=== PATIENT | male | born 1925 | race Caucasian/White ===

== ENCOUNTER 2016-10-07 07:20 | Outpatient (CLI) | payer MEDICARE, BC ==
--- NOTE | ~2016-10-07 | HEMODYNAMI ---
PATIENT:LAYNE DEWEY MEDICAL RECORD: [id number] : [birth year] LOCATION:D[facility] ADMISSION DATE: 10/07/16 Generatedon:10/08/20168:01 Patient name: LAYNE DEWEY Patient #: [id number] SSN: DO B: 1925 Date of study: 10/07/2016 Page: Of Hemodynamic Procedure Report Patient Data Patient Demographics Procedure consent was obtained First Name: LAYNE Gender: Male Last Name: MACO : 1925 Patient #: [id number] Age: 89 year(s) Race: Unknown Additional ID: [id number] Contact details Address: [address] [place] [address] State: [place] City: [facility] Zip code: [address] Admission Admission Data Admission Date: 10/07/2016 Admission Time: 7:20 Admit Source: Other Procedure Procedure Types Cath Procedure Diagnostic Procedure PPM/ICD Loop Recorder Implant Procedure Description Procedure Date Procedure Date: 10/07/2016 Procedure Start Time: 8:25 Procedure Staff Name Function Compa Paulino RT Monitor Pramod Guillen RN Nurse Kai Winters MD Performing Physician Aditya Livingston RT Air Cargo Agent Procedure Data Cath Procedure Estimated blood loss: 1 ml Procedure Medications Medication Administration Route Dosage Ancef (1Gm/50ml NS) I.V.P.B 1 g Versed I.V. 1 mg Hemodynamics Rest Pre Cath Intra NCS Post Cath Vital Signs Time Heart Resp SPO2 NIBP (mmHg) Rhythm Pain Sedation Rate (ipm) (%) Status Level (bpm) 8:57:32 57 19 97 154/69(121) NSR 0 (11) 10(A) , No pain 9:02:01 57 20 97 159/68(129) NSR 0 (11) 10(A) , No pain 9:07:32 66 21 97 157/69(124) NSR 0 (11) 10(A) , No pain 9:12:03 61 23 97 170/79(133) NSR 0 (11) 10(A) , No pain 9:16:33 63 18 97 155/62(118) NSR 0 (11) 10(A) , No pain 9:21:06 69 20 96 168/75(112) NSR 0 (11) 10(A) , No pain 9:25:44 65 19 92 160/68(115) NSR 0 (11) 10(A) , No pain 9:30:10 57 21 96 147/67(115) NSR 0 (11) 10(A) , No pain 9:34:39 67 17 94 160/73(131) NSR 0 (11) 10(A) , No pain 9:39:09 64 18 94 166/77(127) NSR 0 (11) 10(A) , No pain Medications Time Medication Route Dose Verified Delivered Reason Notes Effectiven ess by by 8:56:35 Ancef I.V.P.B 1 g Kai Benavidez Per (1Gm/50ml Singh Guillen RN physician NS) 9:32:46 Versed I.V. 1 mg Kai Pramod for Singh Guillen RN sedation MD Procedure Log Time Note 8:32:08 Informed consent obtained and on chart 8:32:11 Diagnostic Cath Status : Elective 8:33:17 Admit Source: Other 8:33:25 Compa Paulino RT(R) (CV) sent for patient. Start room use. 8:33:28 Time tracking: Regular hours 8:33:33 Plan of Care:Hemodynamics will remain stable., Cardiac rhythm will remain stable., Comfort level will be maintained., Respiratory function will remain adequate., Patient/ family verbilizes understanding of procedure., Procedure tolerated without complication., Recovers from procedure without complications.. 8:55:59 Vital chart was started 8:56:35 Ancef (1Gm/50ml NS) 1 g I.V.P.B was administered by Pramod Guillen RN; Per physician; 9:30:17 Warm blankets applied, and indira hugger turned on for patient comfort. 9:30:25 Full Disclosure recording started 9:30:44 H&P Date Dictated: 10/05/2016 Within 30 days and on chart., H&P Addendum completed by physician on day of procedure. (MUST COMPLETE FOR ALL OUTPATIENTS). 9:30:47 Pre-op teaching completed and patient verbalized understanding. 9:30:50 Family in waiting room. 9:30:53 Patient NPO since Midnight. 9:31:00 Is patient on blood thinner?Yes 9:31:13 Snore? Yes 9:31:14 Sleep apnea? No 9:31:17 Opens mouth fully? Yes 9:31:17 Deviated septum? No 9:31:18 Sticks out tongue? Yes 9:31:46 Airway obstruction? No ? 9:32:04 IV patent on arrival in left wrist with 0.9% NaCl at O. 9:32:05 Medtronic Linq Loop Recorder opened to sterile field. 9:32:19 Physician arrived 9:32:20 --------ALL STOP TIME OUT------ 9:32:21 Final Timeout: patient, procedure, and site verified with staff and physician. All members of the team are in agreement. 9:32:23 Left chest site verified by team. 9:32:46 Physical assessment completed. ASA score P 2 - A patient with mild systemic disease as per Kai Winters MD. 9:32:46 Versed 1 mg I.V. was administered by Pramod Guillen RN; for sedation; 9:32:52 Sedation plan: IV Moderate Sedation Versed 9:33:22 Alarms reviewed by R. N. 9:33:23 Sharps counted by scrub and verified by R.N. 9:33:52 Lidocaine 2% to mid chest by Kai Winters MD. 9:34:16 Incision made to mid chest. 9:34:49 Linq was inserted subcutaneously to left chest. 9:35:04 Procedure ended.(Physican Out) 9:35:36 Sharps counted by scrub and verified by R.N. 9:35:44 Insertion/operative site no bleeding no hematoma. 9:36:55 STERISTRIPS APPLIED AN AD NON A ADHERANT PAD APPLIED WITH TEGADERM 9:37:06 Estimated blood loss: 1 ml 9:38:43 Procedure and supply charges have been captured, reviewed, submitted and are correct. 9:38:47 Vital chart was stopped 9:38:48 See physician's report for complete and final results. 9:38:55 Report given to Pre/Post Procedure Room. 9:38:59 Patient transfered to Pre/Post Procedure Room with Stretcher. 9:39:13 End room use (Document Last) 9:41:13 Full Disclosure recording stopped Device Usage Item Name Manufacture Quantity Catalog Hospital Part Current Minimal Lot# / Number Charge Number Stock Stock Serial# Code Medtronic Medtronic 1 [id number] Linq Loop EXP Recorder Signature Audit [place] Stage Time Signature Unsigned Intra-Procedure 10/07/2016 Compa Paulino RT(R) 9:41:05 AM RT(R) (CV) (CV) 10/08/2016 7:58:36 AM Intra-Procedure 10/08/2016 Aditya Livingston 8:01:15 AM RT(R) Signatures Monitor : Compa Paulino RT Signature : Date : Time : [place] [id number] [place] [address]
[2016-10-07] MEDS ORDERED: ZOCOR10 MG PO (07:51)
[2016-10-07] MEDS ORDERED: COREG 3.1253.125 MG PO (07:51)
[2016-10-07] MEDS ORDERED: PLAVIX75 MG PO (07:51)
[2016-10-07] MEDS ORDERED: PROTONIX40 MG PO (07:52)
[2016-10-07] MEDS ORDERED: HCTZ25 MG PO (07:52)
[2016-10-07] MEDS ORDERED: BAYER CHEWABLE81 MG PO (07:52)
[2016-10-07] MEDS ORDERED: ACETAMINOPHEN500 M1 PO (07:53)
[2016-10-07] MEDS ORDERED: FISH OIL 1,0001 CA1 PO (07:53)
[2016-10-07 07:54] VITALS: BP 165/64; BMI 30.7
--- NOTE | 2016-10-07 09:50 | NUR ---
0950 RECIEVED TO ROOM VIA STRETCHER WITH DRESSING TO L/CHEST BLEEDING NOTED. DRESSING CHANGED BY TEACHING PASTOR STAFF WITH DERMABOND APPLIED. DR WEI AT BEDSIDE WITH INSTRUCTIONS GIVEN TO PATIENT AND FAMILY.
--- NOTE | 2016-10-07 10:10 | NUR ---
PIV REMOVED WITH DRESSING APPLIED. PATIENT UP TO GET DRESSED FOR DISCHARGE HOME
--- NOTE | 2016-10-07 10:20 | NUR ---
VERBAL AND WRITTEN DISCHARGE GONE OVER WITH PATIENT AND FAMILY DRESSING TO L/CHEST CDI NO BLEEDING NO HEMATOMA NOTED. LEFT VIA WC TO PARKING FOR TRANSPORT HOME
== END 2016-10-07 10:24 | disposition home or self-care (01) ==
LOC: D.CATH 07:20
DX: R00.1 Bradycardia, unspecified (principal); I48.2 Chronic atrial fibrillation; R53.83 Other fatigue; R07.89 Other chest pain; Z01.812 Encounter for preprocedural laboratory examination